=== PATIENT | male | born 1960 | race Caucasian/White ===

== ENCOUNTER → 2019-12-23 13:23 | Outpatient (CLI) | payer OTHER, SELFPAY ==
--- NOTE | 2019-12-23 | DI.ECHO.S_ITS ---
[facility]+ [facility] +---------+ : : [address] : [place] : : : : [id number] : : : : Phone: [phone]---------+ Echocardiogram Report + + :Name: KOURTNEY BRISENO Study Date: 12/23/2019 Height: 75 in : :[facility] Weight: 405 lb : : Gender: Male BSA: 3.0 m2 : :: 1960 Age: 59 yrs BP: 138/86 mmHg: :Reason For Study: ATRIAL FIBRILLATION : :Ordering Physician: BLANCHE CONTI : :Yenifer Rivera Performed By: Romana Daily : :Referring: BLANCHE CONTI P.A-C : + + Interpretation Summary The ejection fraction is estimated to be 60-65%. The aortic valve is mildly calcified. There is mildly reduced leaflet mobility. There is trace mitral regurgitation. Compared to the prior echo report on 06/24, there is no significant change. Procedure: A two-dimensional transthoracic echocardiogram with color flow and Doppler was performed. The study quality was technically difficult. A contrast injection of Definity was performed to improve assessment of LV function. Comparison is made with the echocardiogram of 06/08/2019. Left Ventricle: The left ventricle is normal in size. Proximal septal thickening is noted. There is mild concentric left ventricular hypertrophy. The ejection fraction is estimated to be 60-65%. Left ventricular wall motion is normal. Diastolic parameters suggest probable normal left ventricular diastolic function and normal filling pressures. Right Ventricle: The right ventricle is normal in size and function. Atria: The left atrial size is normal. Right atrial size is normal. There is no Doppler evidence for an interatrial shunt. Mitral Valve: The mitral valve is normal in structure and function. There is trace mitral regurgitation. Aortic Valve: The aortic valve is mildly calcified. The aortic valve is trileaflet. There is mildly reduced leaflet mobility. No aortic regurgitation is present. Tricuspid Valve: The tricuspid valve is normal in structure and function. Pulmonary artery pressures cannot be estimated because of the lack of a measurable TR jet velocity but the IVC suggests a CVP of around 3 mmHg. There is trace tricuspid regurgitation. Pulmonic Valve: The pulmonic valve leaflets are thin and pliable; valve motion is normal. There is trace pulmonic regurgitation. Great Vessels: The aortic root is normal size. The ascending aorta is mildly enlarged. The IVC is of normal diameter and collapses greater than 50% with a sniff. This suggests a low right atrial pressure of 3 mm Hg. Pericardium/ Pleura There is no pericardial effusion. There is no pleural effusion. MMode/2D Measurements & Calculations LVIDd: 5.2 cm LVOT diam: 2.2 cm LVIDs: 3.1 cm Ao root diam: 3.5 cm FS: 40.5 % asc Aorta Diam: 3.7 cm EPSS: 1.1 cm Ao Arch Diam (Prox Trans): 3.2 cm IVSd: 1.3 cm LVPWd: 1.1 cm LV wood. diameter/BSA (cm/m^2): 1.8 LV sys. diameter/BSA (cm/m^2): 1.0 LA A2 area: 29.6 cm2 RA long axis: 5.6 cm LA A4 area: 21.6 cm2 RA area: 20.4 cm2 LA length (vol): 5.8 cm RA vol: 63.1 ml LA vol: 93.7 ml RA : 21.3 ml/m2 LA vol index: 31.7 ml/m2 IVC diam: 1.1 cm RVD1 (basal): 3.9 cm TAPSE: 2.8 cm Doppler Measurements & Calculations Ao V2 max: 219.5 cm/sec LVOT Max Theron: 130.3 cm/sec Ao V2 mean: 144.6 cm/sec LV V1 max P.8 mmHg Ao max P.3 mmHg LV V1 VTI: 28.0 cm Ao mean P.7 mmHg JEM(I,D): 2.4 cm2 Ao V2 VTI: 43.4 cm JEM(V,D): 2.2 cm2 sev ratio: 0.64 JEM indexed to BSA (cm^2/m^2): 0.82 MV E max theron: 62.8 cm/sec PA V2 max: 98.6 cm/sec MV A max theron: 75.1 cm/sec PA V2 mean: 71.7 cm/sec MV E/A: 0.84 PA mean P.3 mmHg Med Peak E' Theron: 7.9 cm/sec PA pr(Accel): 44.7 mmHg E/E' med: 7.9 Lat Peak E' Theron: 13.7 cm/sec E/E' lat: 4.6 E/e' average: 6.2 MV dec time: 0.27 sec [facility] 105.5 ml Reading Physician:03:47 PM
== END ==
PROVIDERS: Referring Provider Physician Assistant; Visit Provider Physician Assistant
DX: I48.19 Other persistent atrial fibrillation (principal); I77.89 Other specified disorders of arteries and arterioles
CPT/HCPCS: C8929; Q9957

== ENCOUNTER → 2020-10-05 11:38 | Outpatient (CLI) | payer OTHER, SELFPAY ==
[2020-10-05 19:49] LABS: Alanine Aminotransferase 30 IU/L (<50); Albumin 4.2 g/dL (3.5-5.0); Albumin Globulin Ratio 1.4 (1.0-2.8); Alkaline Phosphatase 82 U/L (38-126); Aspartate Aminotransferase 33 IU/L (17-59); BUN Creatinine Ratio 21.3 (6-22); Bilirubin Total 0.3 mg/dL (0.2-1.3); Blood Urea Nitrogen 20 mg/dL (9-20); Calcium 9.9 mg/dL (8.4-10.2); Carbon Dioxide 27 mmol/L (22-32); Chloride 105 mmol/L (98-107); Estimated Glomerular Filt Rate > 60.0 mL/min (>60); Globulin 2.9 g/dL (1.7-4.1); Glucose 108 mg/dL (80-110); HEMOLYSIS 21 (0-50); Potassium 4.6 mmol/L (3.4-5.1); Sodium 141 mmol/L (137-145); Total Protein 7.1 g/dL (6.3-8.2)
== END ==
PROVIDERS: Referring Provider Internal Medicine Cardiovascular Disease; Visit Provider Internal Medicine Cardiovascular Disease
DX: Z51.81 Encounter for therapeutic drug level monitoring (principal); Z79.899 Other long term (current) drug therapy
CPT/HCPCS: 80053

== ENCOUNTER → 2021-05-15 12:07 | Outpatient (CLI) | payer OTHER, SELFPAY ==
[2021-05-15 12:43] LABS: Add Manual Diff / Slide Review NO; Basophils Absolute Auto 100 /uL (0-100); Basophils Percent Auto 0.7 % (0-2); Eosinophils Absolute Auto 200 /uL (0-450); Eosinophils Percent Auto 2.2 % (2-4); Hematocrit 44.1 % (41-53); Hemoglobin 14.7 g/dL (13.5-17.5); Lymphocytes Absolute Auto 1400 /uL (1100-4500); Lymphocytes Percent Auto 19.7 % (25-40); Mean Corpuscular HGB Conc 33.3 % (30-36); Mean Corpuscular Hemoglobin 30.6 PG (26-34); Mean Corpuscular Volume 92.1 fL (80-100); Monocytes Absolute Auto 800 /uL (0-900); Monocytes Percent Auto 10.8 % (3-14); Neutrophils Absolute Auto 4700 /uL (1500-7000); Neutrophils Percent Auto 66.6 % (50-75); Platelet Count 220 X10^3/uL (150-400); Red Blood Cell Count 4.79 X10^6/uL (4.5-5.9); Red Cell Distribution Width 15.3 % (11.6-14.8); White Blood Cell Count 7.1 X10^3/uL (4.5-11.0)
[2021-05-15 13:05] LABS: Alanine Aminotransferase 33 IU/L (<50); Albumin 4.4 g/dL (3.5-5.0); Albumin Globulin Ratio 1.6 (1.0-2.8); Alkaline Phosphatase 71 U/L (38-126); Aspartate Aminotransferase 31 IU/L (17-59); BUN Creatinine Ratio 17.2 (6-22); Bilirubin Total 0.5 mg/dL (0.2-1.3); Blood Urea Nitrogen 17 mg/dL (9-20); Calcium 9.5 mg/dL (8.4-10.2); Carbon Dioxide 27 mmol/L (22-32); Chloride 105 mmol/L (98-107); Estimated Glomerular Filt Rate > 60.0 mL/min (>60); Globulin 2.8 g/dL (1.7-4.1); Glucose 113 mg/dL (80-110); HEMOLYSIS < 15 (0-50); Potassium 4.4 mmol/L (3.4-5.1); Sodium 137 mmol/L (137-145); Total Protein 7.2 g/dL (6.3-8.2)
== END ==
PROVIDERS: Referring Provider Internal Medicine Cardiovascular Disease; Visit Provider Internal Medicine Cardiovascular Disease
DX: I48.19 Other persistent atrial fibrillation (principal); Z51.81 Encounter for therapeutic drug level monitoring; Z79.899 Other long term (current) drug therapy
CPT/HCPCS: 36415; 80053; 83735; 85025

== ENCOUNTER → 2021-08-14 13:03 | Outpatient (CLI) | payer OTHER, SELFPAY ==
[2021-08-14 20:05] LABS: Thyroid Stimulating Hormone 3.01 uIU/mL (0.47-4.68)
== END ==
PROVIDERS: Visit Provider Internal Medicine Cardiovascular Disease
DX: I48.0 Paroxysmal atrial fibrillation (principal)
CPT/HCPCS: 84443

== ENCOUNTER → 2021-10-12 10:27 | Outpatient (CLI) | payer OTHER, SELFPAY ==
[2021-10-12 18:16] LABS: Add Manual Diff / Slide Review NO; Basophils Absolute Auto 100 /uL (0-100); Basophils Percent Auto 0.9 % (0-2); Eosinophils Absolute Auto 100 /uL (0-450); Eosinophils Percent Auto 2.1 % (2-4); Hematocrit 45.2 % (41-53); Lymphocytes Absolute Auto 1300 /uL (1100-4500); Lymphocytes Percent Auto 22.3 % (25-40); Mean Corpuscular HGB Conc 33.3 % (30-36); Mean Corpuscular Hemoglobin 29.9 PG (26-34); Mean Corpuscular Volume 89.9 fL (80-100); Monocytes Absolute Auto 600 /uL (0-900); Monocytes Percent Auto 10.3 % (3-14); Neutrophils Absolute Auto 3900 /uL (1500-7000); Neutrophils Percent Auto 64.4 % (50-75); Platelet Count 232 X10^3/uL (150-400); Red Blood Cell Count 5.02 X10^6/uL (4.5-5.9)
[2021-10-12 19:57] LABS: Alanine Aminotransferase 28 IU/L (<50); Albumin 4.5 g/dL (3.5-5.0); Albumin Globulin Ratio 1.6 (1.0-2.8); Alkaline Phosphatase 72 U/L (38-126); Aspartate Aminotransferase 28 IU/L (17-59); BUN Creatinine Ratio 18.3 (6-22); Bilirubin Total 0.5 mg/dL (0.2-1.3); Blood Urea Nitrogen 17 mg/dL (9-20); Calcium 9.5 mg/dL (8.4-10.2); Carbon Dioxide 29 mmol/L (22-32); Chloride 100 mmol/L (98-107); Cholesterol 181 mg/dL (140-199); Estimated Glomerular Filt Rate > 60 mL/min (>60); Globulin 2.9 g/dL (1.7-4.1); Glucose 106 mg/dL (80-110); HDL Cholesterol 58 mg/dL (40-60); HEMOLYSIS < 15 (0-50); LDL Cholesterol Calculated 101 mg/dL (<100); Potassium 4.6 mmol/L (3.4-5.1); Sodium 138 mmol/L (137-145); Total Protein 7.4 g/dL (6.3-8.2); Triglycerides 111 mg/dL (35-150); Uric Acid 7.9 mg/dL (3.5-8.5)
[2021-10-12 20:08] LABS: NT-proBNP (BNP-Adult 18+) 43 pg/mL (<125)
[2021-10-12 20:29] LABS: Prostate Specific Antigen Scrn 0.503 ng/mL (0.1-4.0)
[2021-10-12 21:41] LABS: Hemoglobin A1C% w Est Avg Glu 5.9 % (4.0-6.0)
== END ==
PROVIDERS: Visit Provider Physician Assistant
DX: E66.01 Morbid (severe) obesity due to excess calories (principal); I10 Essential (primary) hypertension; R60.9 Edema, unspecified; Z68.44 Body mass index [BMI] 60.0-69.9, adult; Z12.5 Encounter for screening for malignant neoplasm of prostate; Z87.39 Personal history of other diseases of the musculoskeletal system and connective tissue
CPT/HCPCS: 80053; 80061; 83036; 83880; 84550; 85025; G0103

== ENCOUNTER → 2022-02-13 14:22 | Outpatient (CLI) | payer OTHER, MEDICAID, SELFPAY | PROVIDERS: Visit Provider Physician Assistant Medical | DX: L03.90 Cellulitis, unspecified (principal); R60.9 Edema, unspecified; Z87.39 Personal history of other diseases of the musculoskeletal system and connective tissue | CPT/HCPCS: 87070; 87075; 87205 ==

== ENCOUNTER → 2022-08-02 13:58 | Outpatient (CLI) | payer OTHER, MEDICAID, SELFPAY | PROVIDERS: Visit Provider Physician Assistant Medical | DX: R39.89 Other symptoms and signs involving the genitourinary system (principal) | CPT/HCPCS: 81002; 87086 ==

== ENCOUNTER → 2022-08-08 10:07 | Outpatient (CLI) | payer OTHER, SELFPAY ==
[2022-08-08 19:58] LABS: Add Manual Diff / Slide Review NO; Basophils Absolute Auto 0 /uL (0-100); Basophils Percent Auto 0.4 % (0-2); Eosinophils Absolute Auto 0 /uL (0-450); Eosinophils Percent Auto 0.4 % (2-4); Hematocrit 46.4 % (41-53); Hemoglobin 15.4 g/dL (13.5-17.5); Lymphocytes Absolute Auto 1300 /uL (1100-4500); Lymphocytes Percent Auto 13.4 % (25-40); Mean Corpuscular HGB Conc 33.3 % (30-36); Mean Corpuscular Hemoglobin 30.5 PG (26-34); Mean Corpuscular Volume 91.7 fL (80-100); Monocytes Absolute Auto 900 /uL (0-900); Monocytes Percent Auto 8.9 % (3-14); Neutrophils Absolute Auto 7500 /uL (1500-7000); Neutrophils Percent Auto 76.9 % (50-75); Platelet Count 285 X10^3/uL (150-400); Red Blood Cell Count 5.06 X10^6/uL (4.5-5.9); Red Cell Distribution Width 15.2 % (11.6-14.8); White Blood Cell Count 9.7 X10^3/uL (4.5-11.0)
[2022-08-08 20:33] LABS: Alanine Aminotransferase 32 IU/L (<50); Albumin 4.4 g/dL (3.5-5.0); Albumin Globulin Ratio 1.5 (1.0-2.8); Alkaline Phosphatase 90 U/L (38-126); Aspartate Aminotransferase 30 IU/L (17-59); BUN Creatinine Ratio 15.6 (6-22); Bilirubin Total 0.6 mg/dL (0.2-1.3); Blood Urea Nitrogen 14 mg/dL (9-20); Calcium 9.2 mg/dL (8.4-10.2); Carbon Dioxide 26 mmol/L (22-32); Chloride 103 mmol/L (98-107); Estimated Glomerular Filt Rate > 60 mL/min (>60); Glucose 98 mg/dL (80-110); HEMOLYSIS 17 (0-50); Potassium 4.3 mmol/L (3.4-5.1); Sodium 138 mmol/L (137-145); Total Protein 7.4 g/dL (6.3-8.2); Uric Acid 7.7 mg/dL (3.5-8.5)
[2022-08-08 20:39] LABS: Erythrocyte Sedimentation Rate 22 MM/HR (0-15)
[2022-08-10 07:39] LABS: x Labcorp Estim. Avg Glu (eAG) 128 mg/dL (.); x Labcorp Hemoglobin A1c 6.1 % (4.8-5.6)
== END ==
PROVIDERS: Visit Provider Physician Assistant
DX: M10.9 Gout, unspecified (principal); Z68.44 Body mass index [BMI] 60.0-69.9, adult; R73.03 Prediabetes
CPT/HCPCS: 80053; 83036; 84550; 85025; 85651

== ENCOUNTER → 2022-09-30 11:06 | Outpatient (CLI) | payer OTHER, SELFPAY ==
[2022-09-30 19:38] LABS: Uric Acid 7.2 mg/dL (3.5-8.5)
[2022-09-30 20:02] LABS: Prostate Specific Antigen Scrn 0.656 ng/mL (0.1-4.0)
== END ==
PROVIDERS: PCP Physician Assistant Medical; Visit Provider Physician Assistant
DX: M10.9 Gout, unspecified (principal); R73.03 Prediabetes; R73.09 Other abnormal glucose; Z12.5 Encounter for screening for malignant neoplasm of prostate; Z87.39 Personal history of other diseases of the musculoskeletal system and connective tissue
CPT/HCPCS: 84550; G0103

== ENCOUNTER → 2023-04-02 10:27 | Outpatient (CLI) | payer OTHER, SELFPAY ==
[2023-04-02 19:27] LABS: Alanine Aminotransferase 49 IU/L (<50); Albumin 4.3 g/dL (3.5-5.0); Albumin Globulin Ratio 1.3 (1.0-2.8); Alkaline Phosphatase 72 U/L (38-126); Aspartate Aminotransferase 41 IU/L (17-59); BUN Creatinine Ratio 21.2 (6-22); Bilirubin Total 0.4 mg/dL (0.2-1.3); Blood Urea Nitrogen 18 mg/dL (9-20); Calcium 9.3 mg/dL (8.4-10.2); Carbon Dioxide 27 mmol/L (22-32); Chloride 104 mmol/L (98-107); Estimated Glomerular Filt Rate > 60 mL/min (>60); Globulin 3.2 g/dL (1.7-4.1); Glucose 96 mg/dL (80-110); HEMOLYSIS < 15 (0-50); Hemoglobin A1C% w Est Avg Glu 5.5 % (4.0-6.0); Potassium 4.5 mmol/L (3.4-5.1); Sodium 139 mmol/L (137-145); Total Protein 7.5 g/dL (6.3-8.2)
[2023-04-02 19:36] LABS: Creatinine Urine Random 147.8 mg/dL
[2023-04-02 19:42] LABS: Microalbumi Creatinin Ratio Ur 54.1 ug/mg CR (<30)
== END ==
PROVIDERS: PCP Physician Assistant Medical; Visit Provider Physician Assistant Medical
DX: E11.69 Type 2 diabetes mellitus with other specified complication (principal); E66.9 Obesity, unspecified; G47.33 Obstructive sleep apnea (adult) (pediatric); Z91.89 Other specified personal risk factors, not elsewhere classified; Z68.44 Body mass index [BMI] 60.0-69.9, adult
CPT/HCPCS: 80053; 82043; 82570; 83036

== ENCOUNTER → 2023-04-10 12:07 | Outpatient (CLI) | payer OTHER, SELFPAY ==
[2023-04-10 19:39] LABS: Alanine Aminotransferase 44 IU/L (<50); Albumin 4.4 g/dL (3.5-5.0); Albumin Globulin Ratio 1.4 (1.0-2.8); Alkaline Phosphatase 71 U/L (38-126); Bilirubin Total 0.6 mg/dL (0.2-1.3); Blood Urea Nitrogen 15 mg/dL (9-20); Carbon Dioxide 25 mmol/L (22-32); Chloride 103 mmol/L (98-107); Estimated Glomerular Filt Rate > 60 mL/min (>60); Globulin 3.1 g/dL (1.7-4.1); Glucose 102 mg/dL (80-110); HEMOLYSIS < 15 (0-50); Potassium 4.2 mmol/L (3.4-5.1); Sodium 139 mmol/L (137-145); Total Protein 7.5 g/dL (6.3-8.2); Uric Acid 6.3 mg/dL (3.5-8.5)
[2023-04-10 19:41] LABS: Hemoglobin A1C% w Est Avg Glu 5.6 % (4.0-6.0)
[2023-04-10 19:47] LABS: NT-proBNP (BNP-Adult 18+) 40 pg/mL (<125)
[2023-04-10 20:06] LABS: Hematocrit 47.7 % (41-53); Hemoglobin 16.1 g/dL (13.5-17.5); Mean Corpuscular HGB Conc 33.7 % (30-36); Mean Corpuscular Hemoglobin 31.3 PG (26-34); Platelet Count 196 X10^3/uL (150-400); Red Blood Cell Count 5.13 X10^6/uL (4.5-5.9); White Blood Cell Count 6.8 X10^3/uL (4.5-11.0)
[2023-04-10 20:58] LABS: Add Manual Diff / Slide Review YES
[2023-04-10 21:03] LABS: Neutrophils Absolute Manual 3468 /uL (3000-5900); Total Cells Counted 100
[2023-04-10 21:04] LABS: RBC Morphology Normal Morphology
[2023-04-11 15:33] LABS: Aspartate Aminotransferase 34 IU/L (17-59)
== END ==
PROVIDERS: PCP Physician Assistant Medical; Visit Provider Physician Assistant Medical
DX: E11.69 Type 2 diabetes mellitus with other specified complication (principal); E66.9 Obesity, unspecified; I42.9 Cardiomyopathy, unspecified; R60.9 Edema, unspecified; M10.9 Gout, unspecified
CPT/HCPCS: 80053; 83036; 83880; 84550; 85007; 85025

== ENCOUNTER → 2023-06-25 10:16 | Outpatient (CLI) | payer OTHER, SELFPAY ==
[2023-06-25 19:03] LABS: Cholesterol 169 mg/dL (140-199); HDL Cholesterol 64 mg/dL (40-60); LDL Cholesterol Calculated 86 mg/dL (<100); Triglycerides 95 mg/dL (35-150)
== END ==
PROVIDERS: PCP Physician Assistant Medical; Visit Provider Physician Assistant Medical
DX: E11.69 Type 2 diabetes mellitus with other specified complication (principal); E66.9 Obesity, unspecified
CPT/HCPCS: 80061

== ENCOUNTER → 2023-07-01 12:20 | Outpatient (CLI) | payer OTHER, SELFPAY ==
[2023-07-01 20:01] LABS: HEMOLYSIS 37 (0-50); NT-proBNP (BNP-Adult 18+) 36 pg/mL (<125)
[2023-07-01 20:02] LABS: Alanine Aminotransferase 39 IU/L (<50); Albumin 4.2 g/dL (3.5-5.0); Albumin Globulin Ratio 1.4 (1.0-2.8); Alkaline Phosphatase 90 U/L (38-126); Aspartate Aminotransferase 36 IU/L (17-59); Bilirubin Total 0.7 mg/dL (0.2-1.3); Blood Urea Nitrogen 16 mg/dL (9-20); Calcium 9.7 mg/dL (8.4-10.2); Carbon Dioxide 24 mmol/L (22-32); Chloride 108 mmol/L (98-107); Estimated Glomerular Filt Rate > 60 mL/min (>60); Globulin 3.1 g/dL (1.7-4.1); Glucose 100 mg/dL (80-110); Potassium 4.3 mmol/L (3.4-5.1); Sodium 139 mmol/L (137-145); Total Protein 7.3 g/dL (6.3-8.2); Uric Acid 7.5 mg/dL (3.5-8.5)
== END ==
PROVIDERS: PCP Physician Assistant Medical; Visit Provider Physician Assistant Medical
DX: R60.9 Edema, unspecified (principal); I10 Essential (primary) hypertension; M10.032 Idiopathic gout, left wrist; H35.00 Unspecified background retinopathy; Z91.89 Other specified personal risk factors, not elsewhere classified; Z12.5 Encounter for screening for malignant neoplasm of prostate
CPT/HCPCS: 80053; 83880; 84550